=== PATIENT | male | born 1985 | race American Indian/Alaskan Native ===

== ENCOUNTER 2016-07-30 09:01 | Emergency (ER) | payer SELFPAY ==
[2016-07-30 09:09] VITALS: BP 141/84
[2016-07-30] MEDS ORDERED: MOTRIN PO ONE (09:58)
--- NOTE | 2016-07-30 10:05 | XRay Report ---
Left knee 3 views: History: Left knee pain and swelling. Findings: No articular abnormality knee joint. Arthritic changes patellofemoral compartment. No fracture or dislocation. Large amount of fluid in the suprapatellar bursa and knee joint. Impression: Large amount of fluid in the knee joint. Mild arthritic changes patellofemoral compartment.
--- NOTE | 2016-07-30 10:12 | Emergency Department Report ---
ED Lower Extremity HPI - General Chief Complaint: Extremity Injury, Lower Stated Complaint: FLUID ON LEFT KNEE Time Seen by Provider: 07/30/16 09:58 Source: patient Mode of arrival: Ambulatory Limitations: No Limitations - History of Present Illness Initial Comments: 31-year-old male past medical history none presents with 3-1/2 weeks of left knee pain. Patient denies any direct trauma denies any falls denies any fever or chills denies any recent travel no history of DVT or PE does state that his left knee has become progressively more swollen over 3 weeks. 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 Denies any recent trauma related to work. He states he took [id number] Advil with minimal relief of pain MD Complaint: knee injury Onset/Timin -: week(s) Injury: Knee: Left Place: home, work, street/outdoors Severity: moderate Severity scale (0 -10): 6 Improves With: nothing Worsens With: weight bearing, movement Associated Symptoms: swelling, ambulatory - Related Data Previous Rx's Medication Instructions Recorded Last Taken Type Naproxen [Naprosyn TAB] 500 mg PO BID PRN #30 tablet 07/30/16 Unknown Rx Allergies Allergy/AdvReac Type Severity Reaction Status Date / Time No Known Allergies Allergy Unverified 07/30/16 09:05 ED Review of Systems ROS: Stated complaint: FLUID ON LEFT KNEE Other details as noted in HPI Constitutional: denies: chills, fever Eyes: denies: eye pain, eye discharge, vision change ENT: denies: ear pain, throat pain Respiratory: denies: cough, shortness of breath, wheezing Cardiovascular: denies: chest pain, palpitations Endocrine: no symptoms reported Gastrointestinal: denies: abdominal pain, nausea, diarrhea Genitourinary: denies: urgency, dysuria Musculoskeletal: as per HPI (3 weeks of left knee pain and swelling). denies: back pain, joint swelling, arthralgia Skin: denies: rash, lesions Neurological: denies: headache, weakness, paresthesias Psychiatric: denies: anxiety, depression Hematological/Lymphatic: denies: easy bleeding, easy bruising ED Past Medical Hx - Past Medical History Previous Medical History?: Yes Additional medical history: left knee pain - Surgical History Past Surgical History?: No - Social History Smoking Status: Current Every Day Smoker Substance Use Type: Alcohol - Medications Home Medications: Home Medications Medication Instructions Recorded Confirmed Last Taken Type Naproxen [Naprosyn TAB] 500 mg PO BID PRN #30 tablet 07/30/16 Unknown Rx ED Physical Exam - General Limitations: No Limitations General appearance: alert, in no apparent distress - Head Head exam: Present: atraumatic, normocephalic - Eye Eye exam: Present: normal appearance, PERRL, EOMI - ENT ENT exam: Present: mucous membranes moist - Neck Neck exam: Present: normal inspection - Respiratory Respiratory exam: Present: normal lung sounds bilaterally. Absent: respiratory distress - Cardiovascular Cardiovascular Exam: Present: regular rate, normal rhythm. Absent: systolic murmur, diastolic murmur, rubs, gallop - GI/Abdominal GI/Abdominal exam: Present: soft, normal bowel sounds - Rectal Rectal exam: Present: deferred - Extremities Exam Extremities exam: Present: normal inspection - Expanded Lower Extremity Exam Left Hip exam: Present: normal inspection, full ROM Upper Leg exam: Present: normal inspection, full ROM Knee exam: Present: tenderness, swelling (visible swelling surrounding anterior knee joint), pain/laxity with valgus, pain/laxity with varus (pain with varus and valgus testing), full knee extension (knee extension intact, pain with knee flexion) Lower Leg exam: Present: normal inspection, full ROM Ankle exam: Present: normal inspection, full ROM Foot/Toe exam: Present: normal inspection, full ROM Neuro vascular tendon exam: Present: no vascular compromise (distal dorsalis pedis and posterior tibial pulses intact, distal sensation intact) Gait: Positive: antalgic 1 - Swelling in anterior knee region - Back Exam Back exam: Present: normal inspection - Neurological Exam Neurological exam: Present: alert, oriented X3, CN II-XII intact, abnormal gait (antalgic gait) - Psychiatric Psychiatric exam: Present: normal affect, normal mood - Skin Skin exam: Present: warm, dry, intact, normal color. Absent: rash ED Course Vital Signs 07/30/16 07/30/16 09:05 10:10 Temperature 98.8 F Pulse Rate 90 Respiratory 18 16 Rate Blood Pressure 141/84 O2 Sat by Pulse 100 Oximetry ED Lower Extremity MDM - Lab Data Result diagrams: 07/30/16 10:24 07/30/16 10:24 - Medical Decision Making A/P: Left knee osteoarthritis, possible meniscal or ligament injury left knee 1-x-ray shows effusion but no fracture him a lower extremity duplex negative for DVT, CBC BMP within normal limits. I called the lab for BMP results, sodium 141, potassium 3.7, there is an issue with [employer] regarding reporting labs 2-follow-up with orthopedics 3-naproxen 500 mg when necessary, RICE therapy, patient provided with knee immobilizer and Doni wrap, ambulatory upon discharge Critical care attestation.: If time is entered above; I have spent that time in minutes in the direct care of this critically ill patient, excluding procedure time. ED Disposition Clinical Impression: Knee pain, left Qualifiers: Chronicity: chronic Qualified Code(s): M25.562 - Pain in left knee Disposition: DC- TO HOME OR SELFCARE Is pt being admited?: No Does the pt Need Aspirin: No Condition: Stable Instructions: Knee Effusion (ED), Knee Pain (ED), RICE Therapy (ED), Knee Immobilizer (ED) Additional Instructions: [phone] Dr. Hutchinson Ortho Prescriptions: Naproxen [Naprosyn TAB] 500 mg PO BID PRN #30 tablet PRN Reason: Pain Referrals: ISIAH HUTCHINSON MD [Staff Physician] - 3-5 Days Time of Disposition: 11:10
[2016-07-30 10:45] LABS: Basophils % (Auto) 0.5 % (0.0-1.8); Eosinophils % (Auto) 5.5 % (0.0-4.3); Mean Corpuscular HGB Conc 32 % (32-34); Mean Corpuscular Volume 73 fl (84-94); Platelet Count 225 K/mm3 (140-440); Red Blood Count 5.19 M/mm3 (3.65-5.03); Red Cell Distribution Width 15.2 % (13.2-15.2)
[2016-07-30 10:47] LABS: Mean Corpuscular Hemoglobin 23 pg (28-32)
[2016-07-30 10:54] LABS: Anion Gap 17 mmol/L; BUN/Creatinine Ratio 11.33; Blood Urea Nitrogen 17 mg/dL (9-20); Calcium 8.8 mg/dL (8.4-10.2); Carbon Dioxide 24 mmol/L (22-30); Chloride 103.6 mmol/L (98-107); Creatine Kinase 128 units/L (55-170); Glucose 140 mg/dL (75-100); Potassium 3.7 mmol/L (3.6-5.0); Sodium 141 mmol/L (137-145)
--- NOTE | 2016-08-01 07:38 | Vascular Lab Report ---
Left Lower Extremity Venous Duplex Study: Reason for Exam: Pain and swelling of the left lower extremity. Comments on the Right: A limited duplex study was done of the proximal veins of the right lower extremity. All veins visualized are freely compressible without evidence of internal echogenicity. Flow is spontaneous and phasic throughout. No evidence of acute or chronic thrombus is seen in any of the vessels visualized. Comments on the Left: All veins visualized are freely compressible without evidence of internal echogenicity. Flow is spontaneous and phasic throughout. No evidence of acute or chronic thrombus is seen in any of the vessels visualized. Soft tissue density is consistent with a ruptured Raaujo's cyst. Impression: No evidence of acute or chronic deep venous thrombosis in the left lower extremity.
== END 2016-07-30 11:57 | disposition home or self-care (01) ==
LOC: ED 09:01
DX: M25.562 Pain in left knee (principal); G89.29 Other chronic pain; F17.200 Nicotine dependence, unspecified, uncomplicated
CPT/HCPCS: 36415; 80048; 82550; 85025

== ENCOUNTER 2016-12-18 09:17 | Emergency (ER) | payer SELFPAY ==
--- NOTE | 2016-12-18 13:12 | Emergency Department Report ---
ED Lower Extremity HPI - General Chief Complaint: Extremity Problem,Nontraumatic Stated Complaint: RIGHT FOOT SWOLLEN Time Seen by Provider: 12/18/16 12:30 Source: patient Mode of arrival: Ambulatory Limitations: No Limitations - History of Present Illness Initial Comments: This is a 31-year-old male nontoxic, well nourished in appearance, no acute signs of distress presents to the ED complaining of right foot pain and a knot 2 months. Patient stated he does not know Advil for pain but gradually is increased. Patient denies trauma to the region, fever, chills, nausea, vomiting , chest pain, shortness of breath, headache, joint redness, joint swelling. Patient denies fever or chills. The pain as aching with a 7 out of 10. Denies any allergies with [facility] rheumatoid arthritis. MD Complaint: foot injury -: month(s) (2) Injury: Foot: Left Severity: mild Severity scale (0 -10): 8 Improves With: nothing Worsens With: nothing Associated Symptoms: ambulatory. denies: snap/pop sensation, swelling, numbness , tingling, unable to bear weight, able to partially bear weight - Related Data Previous Rx's Medication Instructions Recorded Last Taken Type Naproxen [Naprosyn TAB] 500 mg PO BID PRN #30 tablet 07/30/16 Unknown Rx Ibuprofen [Motrin 600 MG tab] 600 mg PO Q8H PRN #30 tablet 12/18/16 Unknown Rx Allergies Allergy/AdvReac Type Severity Reaction Status Date / Time No Known Allergies Allergy Unverified 07/30/16 09:05 ED Review of Systems ROS: Stated complaint: RIGHT FOOT SWOLLEN Other details as noted in HPI Constitutional: denies: chills, fever Eyes: denies: eye pain, eye discharge, vision change ENT: denies: ear pain, throat pain Respiratory: denies: cough, shortness of breath, wheezing Cardiovascular: denies: chest pain, palpitations Endocrine: no symptoms reported Gastrointestinal: denies: abdominal pain, nausea, diarrhea Genitourinary: denies: urgency, dysuria Musculoskeletal: denies: back pain, joint swelling, arthralgia Skin: denies: rash, lesions Neurological: denies: headache, weakness, paresthesias Psychiatric: denies: anxiety, depression Hematological/Lymphatic: denies: easy bleeding, easy bruising ED Past Medical Hx - Past Medical History Previous Medical History?: Yes Hx Arthritis: Yes (bilateral knee) Additional medical history: left knee pain - Surgical History Past Surgical History?: No - Social History Smoking Status: Current Every Day Smoker Substance Use Type: Alcohol - Medications Home Medications: Home Medications Medication Instructions Recorded Confirmed Last Taken Type Naproxen [Naprosyn TAB] 500 mg PO BID PRN #30 tablet 07/30/16 Unknown Rx Ibuprofen [Motrin 600 MG tab] 600 mg PO Q8H PRN #30 tablet 12/18/16 Unknown Rx ED Physical Exam - General Limitations: No Limitations General appearance: alert, in no apparent distress - Head Head exam: Present: atraumatic, normocephalic, normal inspection - Eye Eye exam: Present: normal appearance, PERRL, EOMI. Absent: scleral icterus, conjunctival injection, nystagmus, periorbital swelling, periorbital tenderness Pupils: Present: normal accommodation - ENT ENT exam: Present: normal exam, normal orophraynx, mucous membranes moist, TM's normal bilaterally, normal external ear exam - Neck Neck exam: Present: normal inspection, full ROM. Absent: tenderness, meningismus, lymphadenopathy, thyromegaly - Respiratory Respiratory exam: Present: normal lung sounds bilaterally. Absent: respiratory distress, wheezes, rales, rhonchi, stridor, chest wall tenderness, accessory muscle use, decreased breath sounds, prolonged expiratory - Cardiovascular Cardiovascular Exam: Present: regular rate, normal rhythm, normal heart sounds. Absent: bradycardia, tachycardia, irregular rhythm, systolic murmur, diastolic murmur, rubs, gallop - GI/Abdominal GI/Abdominal exam: Present: soft, normal bowel sounds. Absent: distended, tenderness, guarding, rebound, rigid, diminished bowel sounds - Rectal Rectal exam: Present: deferred - Extremities Exam Extremities exam: Present: normal inspection, full ROM, tenderness, normal capillary refill. Absent: pedal edema, joint swelling, calf tenderness - Expanded Lower Extremity Exam Right Hip exam: Present: normal inspection, full ROM Upper Leg exam: Present: normal inspection, full ROM Knee exam: Present: normal inspection, full ROM Lower Leg exam: Present: normal inspection, full ROM. Absent: Eder's sign Ankle exam: Present: normal inspection, full ROM. Absent: tenderness, swelling , abrasion, laceration, ecchymosis, deformity, crepidus, dislocation, erythema, anterior draw sign Foot/Toe exam: Present: normal inspection, full ROM, tenderness (dorsal foot). Absent: swelling, abrasion, laceration, ecchymosis, deformity, crepidus, dislocation, erythema, amputation, puncture wound, foreign body, calcaneal tenderness, tenderness at base of 5th metatarsal, nail avulsion, subungual hematoma Neuro vascular tendon exam: Present: no vascular compromise. Absent: pulse deficit, abnormal cap refill, motor deficit, sensory deficit, tendon deficit, extremity cold to touch, pallor, abnormal 2-point discrimination, decreased fine /light touch, foot drop, peroneal nerve deficit, significant pain with passive ROM of distal joint Gait: Positive: observed and normal 1 - Tenderness with a nodular swelling. No induration or fluctuance. No redness or surrounding cellulitis noted. - Back Exam Back exam: Present: normal inspection, full ROM. Absent: tenderness, CVA tenderness (R), CVA tenderness (L), muscle spasm, paraspinal tenderness, vertebral tenderness, rash noted - Neurological Exam Neurological exam: Present: alert, oriented X3, CN II-XII intact, normal gait, reflexes normal - Psychiatric Psychiatric exam: Present: normal affect, normal mood - Skin Skin exam: Present: warm, dry, intact, normal color. Absent: rash ED Course Vital Signs 12/18/16 09:59 Temperature 98.6 F Pulse Rate 78 Respiratory 20 Rate Blood Pressure 129/75 Blood Pressure 129/75 [Left] O2 Sat by Pulse 100 Oximetry - Reevaluation(s) Reevaluation #1: 12/18/16 13:15 Patient is speaking in full sentences with no signs of distress noted. ED Lower Extremity MDM - Medical Decision Making 31-year-old male presents with right foot pain. Patient was examined patient is stable. X-ray has been obtained and read by radiologist with negative findings of any abnormalities besides RA. Patient notified of x-ray results with no further questions nor but the patient. Upon examination there is no induration or fluctuance noted. No cellulitis, joint swelling or joint redness noted. Normal range of motion and normal gait. There is a 1 cm nodular swelling that is tender to touch. There is no obvious signs of any trauma or foreign body. Patient received ibuprofen 800 mg by mouth in the ED which patient stated symptoms of pain are subsiding and are improving. Patient was notified to follow-up with orthopedic doctor in 3-5 days or if symptoms worsen and continue return to emergency room as soon as possible. Patient is hemodynamically stable with stable vital signs. Patient states he is feeling better. At time time of discharge, the patient does not seem toxic or ill in appearance. No acute signs of distress noted. Patient agrees to discharge treatment plan of care. No further questions noted by the patient. Critical care attestation.: If time is entered above; I have spent that time in minutes in the direct care of this critically ill patient, excluding procedure time. ED Disposition Clinical Impression: Right foot pain Rheumatoid arthritis Qualifiers: Rheumatoid arthritis location: foot Rheumatoid factor presence: unspecified presence Laterality: right Qualified Code(s): M06.9 - Rheumatoid arthritis, unspecified Disposition: DC- TO HOME OR SELFCARE Is pt being admited?: No Does the pt Need Aspirin: No Condition: Stable Instructions: Ibuprofen (By mouth), RICE Therapy (ED), Rheumatoid Arthritis (ED ) Additional Instructions: Follow-up with Dr. Hutchinson or another orthopedic doctor in 3-5 days or if symptoms worsen and continue presents to emergency room as soon as possible. Prescriptions: Ibuprofen [Motrin 600 MG tab] 600 mg PO Q8H PRN #30 tablet PRN Reason: Pain Referrals: PRIMARY MD KENY [Primary Care Provider] - 3-5 Days ISIAH HUTCHINSON MD [Staff Physician] - 3-5 Days [facility] [Outside] - 3-[address] [facility] [place] [Outside] - 3-5 Days Forms: Work/School Release Form(ED)
[2016-12-18] MEDS ORDERED: MOTRIN PO ONE (13:15)
--- NOTE | 2016-12-18 13:33 | XRay Report ---
Right foot 3 views: History: Pain with knot Findings: Narrowing noted of the tarsometatarsal joints with irregular/erosive sclerotic articular surfaces and peripheral osteophyte. No periosteal reaction or soft tissue calcification. The metatarsophalangeal and interphalangeal joint grossly appears normal. Impression: Findings strongly suggestive of chronic rheumatoid arthritis. Clinical correlation is advised
[2016-12-18 13:49] VITALS: BP 152/78
== END 2016-12-18 13:49 | disposition home or self-care (01) ==
LOC: ED 09:17
DX: M06.9 Rheumatoid arthritis, unspecified (principal); M79.671 Pain in right foot; F17.200 Nicotine dependence, unspecified, uncomplicated
CPT/HCPCS: 99283

== ENCOUNTER 2017-03-26 08:22 | Emergency (ER) | payer SELFPAY ==
--- NOTE | 2017-03-26 09:37 | XRay Report ---
RIGHT KNEE, 3 views: History: Right knee pain and swelling. There is a very large joint effusion on the lateral view extending to the suprapatellar bursa. Normal bone mineralization. No evidence for fracture or bone lesion. No significant joint pathology is appreciated. IMPRESSION: Large joint effusion. If internal derangement is suspected, MRI right knee without contrast is recommended.
[2017-03-26] MEDS ORDERED: MOTRIN PO ONE (13:40)
--- NOTE | 2017-03-26 13:40 | Emergency Department Report ---
ED Lower Extremity HPI - General Chief Complaint: Extremity Injury, Lower Stated Complaint: RIGHT KNEE PAIN Time Seen by Provider: 03/26/17 12:32 Source: patient Mode of arrival: Ambulatory Limitations: No Limitations - History of Present Illness Initial Comments: This is a 32-year-old male nontoxic, well nourished in appearance, no acute signs of distress presents to the ED with c/o of right knee pain and swelling x2 days. Patient denies any trauma or injuries. Patient stated had similar symptoms to the left knee and was diagnosed with rheumatoid arthritis versus gout. Patient denies any numbness, tingling, fever, chills, nausea, vomiting, chest pain or shortness of breath. Patient denies follow-up with the orthopedic doctor as he stated after medical treatment last time symptoms resolved. Patient denies any allergies. Past medical history includes rheumatoid arthritis. MD Complaint: knee injury -: days(s) (2) Injury: Knee: Right Severity: mild Severity scale (0 -10): 8 Improves With: nothing Worsens With: nothing Associated Symptoms: swelling, able to partially bear weight, ambulatory. denies: snap/pop sensation, numbness, tingling, unable to bear weight - Related Data Previous Rx's Medication Instructions Recorded Last Taken Type Naproxen [Naprosyn TAB] 500 mg PO BID PRN #30 tablet 07/30/16 Unknown Rx Ibuprofen [Motrin 600 MG tab] 600 mg PO Q8H PRN #30 tablet 12/18/16 Unknown Rx Ibuprofen [Motrin] 600 mg PO Q8H PRN #30 tablet 03/26/17 Unknown Rx predniSONE [Deltasone] 10 mg PO .TAPER #21 tab 03/26/17 Unknown Rx Allergies Allergy/AdvReac Type Severity Reaction Status Date / Time No Known Allergies Allergy Unverified 07/30/16 09:05 ED Review of Systems ROS: Stated complaint: RIGHT KNEE PAIN Other details as noted in HPI Constitutional: denies: chills, fever Eyes: denies: eye pain, eye discharge, vision change ENT: denies: ear pain, throat pain Respiratory: denies: cough, shortness of breath, wheezing Cardiovascular: denies: chest pain, palpitations Endocrine: no symptoms reported Gastrointestinal: denies: abdominal pain, nausea, diarrhea Genitourinary: denies: urgency, dysuria Musculoskeletal: joint swelling, arthralgia. denies: back pain Skin: denies: rash, lesions Neurological: denies: headache, weakness, paresthesias Psychiatric: denies: anxiety, depression Hematological/Lymphatic: denies: easy bleeding, easy bruising ED Past Medical Hx - Past Medical History Previous Medical History?: Yes Hx Arthritis: Yes (bilateral knee) Additional medical history: left knee pain - Surgical History Past Surgical History?: No - Social History Smoking Status: Current Every Day Smoker Substance Use Type: Alcohol, Non Opiate Pain - Medications Home Medications: Home Medications Medication Instructions Recorded Confirmed Last Taken Type Naproxen [Naprosyn TAB] 500 mg PO BID PRN #30 tablet 07/30/16 Unknown Rx Ibuprofen [Motrin 600 MG tab] 600 mg PO Q8H PRN #30 tablet 12/18/16 Unknown Rx Ibuprofen [Motrin] 600 mg PO Q8H PRN #30 tablet 03/26/17 Unknown Rx predniSONE [Deltasone] 10 mg PO .TAPER #21 tab 03/26/17 Unknown Rx ED Physical Exam - General Limitations: No Limitations General appearance: alert, in no apparent distress - Head Head exam: Present: atraumatic, normocephalic - Eye Eye exam: Present: normal appearance, PERRL, EOMI Pupils: Present: normal accommodation - ENT ENT exam: Present: normal exam, normal orophraynx, mucous membranes moist, TM's normal bilaterally, normal external ear exam - Neck Neck exam: Present: normal inspection, full ROM. Absent: tenderness, meningismus, lymphadenopathy, thyromegaly - Respiratory Respiratory exam: Present: normal lung sounds bilaterally. Absent: respiratory distress, wheezes, rales, rhonchi, stridor, chest wall tenderness, accessory muscle use, decreased breath sounds, prolonged expiratory - Cardiovascular Cardiovascular Exam: Present: regular rate, normal rhythm, normal heart sounds. Absent: irregular rhythm, systolic murmur, diastolic murmur, rubs, gallop - GI/Abdominal GI/Abdominal exam: Present: soft, normal bowel sounds. Absent: distended, tenderness, guarding, rebound, rigid, diminished bowel sounds - Rectal Rectal exam: Present: deferred - Extremities Exam Extremities exam: Present: normal inspection, full ROM, tenderness, normal capillary refill, joint swelling. Absent: pedal edema, calf tenderness - Expanded Lower Extremity Exam Right Hip exam: Present: normal inspection, full ROM, external rotation, internal rotation, pelvic stability. Absent: tenderness, swelling, abrasion, laceration , ecchymosis, deformity, crepidus, dislocation, erythema, shortening Upper Leg exam: Present: normal inspection, full ROM. Absent: tenderness, swelling, abrasion, laceration, ecchymosis, deformity, crepidus, dislocation, erythema Knee exam: Present: normal inspection, full ROM, tenderness, swelling, full knee extension. Absent: abrasion, laceration, ecchymosis, deformity, crepidus, dislocation, erythema, effusion, pain w/ pronation/supination, posterior draw sign, pain/laxity with valgus, pain/laxity with varus Lower Leg exam: Present: normal inspection, full ROM. Absent: tenderness, swelling, abrasion, laceration, ecchymosis, deformity, crepidus, dislocation, erythema, palpable cord, Eder's sign Ankle exam: Present: normal inspection, full ROM. Absent: tenderness, swelling , abrasion, laceration, ecchymosis, deformity, crepidus, dislocation, erythema, anterior draw sign Foot/Toe exam: Present: normal inspection, full ROM. Absent: tenderness, swelling, abrasion, laceration, ecchymosis, deformity, crepidus, dislocation, erythema, amputation, puncture wound, foreign body, calcaneal tenderness, tenderness at base of 5th metatarsal, nail avulsion, subungual hematoma Neuro vascular tendon exam: Present: no vascular compromise. Absent: pulse deficit, abnormal cap refill, motor deficit, sensory deficit, tendon deficit, extremity cold to touch, pallor, abnormal 2-point discrimination, decreased fine /light touch, foot drop, peroneal nerve deficit, significant pain with passive ROM of distal joint Gait: Positive: observed and normal - Back Exam Back exam: Present: normal inspection, full ROM. Absent: tenderness, CVA tenderness (R), CVA tenderness (L), muscle spasm, paraspinal tenderness, vertebral tenderness, rash noted - Neurological Exam Neurological exam: Present: alert, oriented X3, CN II-XII intact, normal gait, reflexes normal - Psychiatric Psychiatric exam: Present: normal affect, normal mood - Skin Skin exam: Present: warm, dry, intact, normal color. Absent: rash - Other Other exam information: Left knee is not warm to touch. No signed or erythema or cellulitis. ED Course Vital Signs 03/26/17 08:25 Temperature 98 F Pulse Rate 92 H Respiratory 18 Rate Blood Pressure 121/66 O2 Sat by Pulse 100 Oximetry - Reevaluation(s) Reevaluation #1: 03/26/17 13:49 Patient is speaking in full sentences with no signs of distress noted. ED Lower Extremity MDM - Medical Decision Making This is a 32-year-old male that presents with gout versus rheumatoid arthritis of right knee. Patient is stable and was examined by me. Upon examination there is no signs or symptoms of cellulitis. The area is not warm to touch. An x-ray has been obtained and dictated by radiologist with large joint effusion and possibly rule out with MRI. Dr. Almonte has been consulted about the patient's history, physical exam and x-ray reports and agrees to discharge plan of care as well as ED. Patient received Motrin and Solu-Medrol 125 mg in the ED. Patient was instructed Follow-up with a orthopedic doctor in 3-5 days or if symptoms worsen and continue return to emergency room as soon as possible. At time time of discharge, the patient does not seem toxic or ill in appearance. No acute signs of distress noted. Patient agrees to discharge treatment plan of care. No further questions noted by the patient. Critical care attestation.: If time is entered above; I have spent that time in minutes in the direct care of this critically ill patient, excluding procedure time. 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, right knee, without tophus (tophi) Right knee pain Qualifiers: Chronicity: acute Qualified Code(s): M25.561 - Pain in right knee Rheumatoid arthritis Qualifiers: Rheumatoid arthritis location: knee Rheumatoid factor presence: unspecified presence Laterality: right Qualified Code(s): M06.9 - Rheumatoid arthritis, unspecified Disposition: -01 TO HOME OR SELFCARE Is pt being admited?: No Does the pt Need Aspirin: No Condition: Stable Instructions: Acute Gouty Arthritis (ED), Rheumatoid Arthritis (ED), RICE Therapy (ED), Prednisone (By mouth), Ibuprofen (By mouth) Additional Instructions: Follow-up with a orthopedic doctor in 3-5 days or if symptoms worsen and continue return to emergency room as soon as possible. Rest, elevate, and ice extremity Prescriptions: Ibuprofen [Motrin] 600 mg PO Q8H PRN #30 tablet PRN Reason: Pain predniSONE [Deltasone] 10 mg PO .TAPER #21 tab Referrals: PAT BARGER MD [Primary Care Provider] - 3-5 Days PRIMARY CARE, [Referring] - 3-5 Days [facility] [Outside] - 3-5 Days [facility] [Outside] - 3-5 Days Forms: Work/School Release Form(ED)
[2017-03-26 14:08] VITALS: BP 120/84
== END 2017-03-26 14:07 | disposition home or self-care (01) ==
LOC: ED 08:22
DX: M1A.0610 Idiopathic chronic gout, right knee, without tophus (tophi) (principal); M06.9 Rheumatoid arthritis, unspecified; F17.200 Nicotine dependence, unspecified, uncomplicated
CPT/HCPCS: 73562; 96372; 99283; J2930

== ENCOUNTER 2020-08-18 12:42 | Emergency (ER) | payer BC ==
[2020-08-18 12:53] VITALS: BP 146/74
--- NOTE | 2020-08-18 14:19 | Emergency Department Report ---
ED Lower Extremity HPI - General Chief Complaint: Extremity Problem,Nontraumatic Stated Complaint: FOOT INJURY Source: patient Mode of arrival: Ambulatory Limitations: No Limitations - History of Present Illness Initial Comments: 35-year-old -[place] male presents to the emergency room complaining of 2-week history of left foot pain. 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 Patient states has been taking Tylenol and Aleve without much relief. Patient states he last took pain medicine was yesterday. He denies any known drug allergies. Reports he has a past medical history of gout. Patient reports aggravating factors in his weightbearing and palpation of his foot. Alleviating factors include rest. MD Complaint: foot injury Onset/Timin -: week(s) Injury: Foot: Left Type of Injury: blunt Place: work Severity scale (0 -10): 6 Improves With: nothing Worsens With: weight bearing, movement, palpation Context: jumping Associated Symptoms: swelling, able to partially bear weight - Related Data Previous Rx's Medication Instructions Recorded Last Taken Type Ibuprofen [Motrin 600 MG tab] 600 mg PO Q8H PRN #30 tablet 12/18/16 Unknown Rx Ibuprofen [Motrin] 600 mg PO Q8H PRN #30 tablet 03/26/17 Unknown Rx predniSONE 10 mg PO .TAPER #21 tab 03/26/17 Unknown Rx Naproxen [Naprosyn TAB] 500 mg PO BID PRN #30 tablet 08/18/20 Unknown Rx Allergies Allergy/AdvReac Type Severity Reaction Status Date / Time No Known Allergies Allergy Unverified 07/30/16 09:05 ED Review of Systems ROS: Stated complaint: FOOT INJURY Other details as noted in HPI Comment: All other systems reviewed and negative ED Past Medical Hx - Past Medical History Previous Medical History?: Yes Hx Arthritis: Yes (bilateral knee) Additional medical history: left knee pain - Surgical History Past Surgical History?: No - Social History Smoking Status: Current Every Day Smoker Substance Use Type: Alcohol, Non Opiate Pain - Medications Home Medications: Home Medications Medication Instructions Recorded Confirmed Last Taken Type Ibuprofen [Motrin 600 MG tab] 600 mg PO Q8H PRN #30 tablet 12/18/16 Unknown Rx Ibuprofen [Motrin] 600 mg PO Q8H PRN #30 tablet 03/26/17 Unknown Rx predniSONE 10 mg PO .TAPER #21 tab 03/26/17 Unknown Rx Naproxen [Naprosyn TAB] 500 mg PO BID PRN #30 tablet 08/18/20 Unknown Rx ED Physical Exam - General Limitations: No Limitations ED Course Vital Signs 08/18/20 12:52 Temperature 98.0 F Pulse Rate 92 H Respiratory 18 Rate Blood Pressure 146/74 [Right] O2 Sat by Pulse 99 Oximetry ED Lower Extremity MDM - Radiology Data Radiology results: report reviewed [facility] [address] [place] [address] XRay Report Signed Patient: FLORY CROUCH MR#: [id number] : 1985 Acct:[id number] Age/Sex: 35 / M ADM Date: 08/18/20 Loc: ED Attending Dr: Ordering Physician: ELSIE ROCK Date of Service: 08/18/20 Procedure(s): XR foot 3+V LT Accession Number(s): [id number] cc: ELSIE ROCK Fluoro Time In Minutes: XR foot 3+V LT INDICATION / CLINICAL INFORMATION: Trauma to left foot pain swelling. COMPARISON: None available. FINDINGS: No acute fracture. Normal alignment. Joint spaces are preserved. No destructive osseous lesion or suspicious periosteal reaction. Impression: 1.No acute fracture. Signer Name: Graham Chandler MD Signed: 08/18/2020 3:15 PM Workstation Name: [id number] Transcribed By: CS Dictated By: Graham Chandler MD Electronically Authenticated By: Graham Chandler MD Signed Date/Time: 08/18/20 1515 DD/ 1514 TD/TT: - Medical Decision Making 35-year-old -[place] male presents to the emergency room complaining of 2-week history of left foot pain. 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 Patient states has been taking Tylenol and Aleve without much relief. Patient states he last took pain medicine was yesterday. He denies any known drug allergies. Reports he has a past medical history of gout. Patient reports aggravating factors in his weightbearing and palpation of his foot. Alleviating factors include rest. Critical care attestation.: If time is entered above; I have spent that time in minutes in the direct care of this critically ill patient, excluding procedure time. ED Disposition Clinical Impression: Left foot pain Disposition: DC- TO HOME OR SELFCARE Is pt being admited?: No Does the pt Need Aspirin: No Condition: Stable Instructions: Foot Pain, Pain Without a Known Cause Additional Instructions: X-ray of left foot shows no fracture or dislocation reads has a normal examination. You can take naproxen for pain use crutches and follow-up with an orthopedic provider. Prescriptions: Naproxen [Naprosyn TAB] 500 mg PO BID PRN #30 tablet PRN Reason: Pain Referrals: ISIAH JIMENEZ MD [Staff Physician] - 3-5 Days Forms: Work/School Release Form(ED)
--- NOTE | 2020-08-18 15:19 | XRay Report ---
XR foot 3+V LT INDICATION / CLINICAL INFORMATION: Trauma to left foot pain swelling. COMPARISON: None available. FINDINGS: No acute fracture. Normal alignment. Joint spaces are preserved. No destructive osseous lesion or s uspicious periosteal reaction. Impression: 1.No acute fracture. Signer Name: Graham Chandler MD Signed: 08/18/2020 3:15 PM Workstation Name: [id number]
== END 2020-08-18 16:25 | disposition home or self-care (01) ==
LOC: ED 12:42
DX: M79.672 Pain in left foot (principal); M79.89 Other specified soft tissue disorders; M19.91 Primary osteoarthritis, unspecified site; F17.200 Nicotine dependence, unspecified, uncomplicated; Z79.1 Long term (current) use of non-steroidal anti-inflammatories (NSAID); Z79.899 Other long term (current) drug therapy